=== PATIENT | female | born 2000 | race African-American/Black ===

== ENCOUNTER 2020-03-17 04:50 | Outpatient (CLI) | payer OTHER ==
[2020-03-17 06:43] LABS: APPEARANCE,URINE CLEAR; BILIRUBIN,URINE NEGATIVE (NEGATIVE); COLOR,URINE STRAW; GLUCOSE, URINE NEGATIVE (NEGATIVE); KETONES,URINE NEGATIVE (NEGATIVE); LEUKOCYTE ESTERASE,URINE NEGATIVE (NEGATIVE); NITRITE,URINE NEGATIVE (NEGATIVE); PROTEIN,URINE NEGATIVE (NEGATIVE); URINE SPECIFIC GRAVITY 1.006; UROBILINOGEN,URINE NEGATIVE mg/dL (<2.0)
[2020-03-17 07:00] LABS: URINE AMPHETAMINES SCREEN NEGATIVE; URINE BARBITURATES SCREEN NEGATIVE; URINE BENZODIAZEPINES SCREEN NEGATIVE; URINE COCAINE SCREEN NEGATIVE; URINE MARIJUANA (THC) SCREEN NEGATIVE; URINE METHADONE SCREEN NEGATIVE; URINE PHENCYCLIDINE SCREEN NEGATIVE
--- NOTE | 2020-03-17 07:07 | Non Stress Test Report ---
Non Stress Test Datetime Report Generated by CPN: 03/17/2020 07:07 DEMOGRAPHIC EGA NST: 36.4 INDICATION Indication for Study (NST) Other: lc; gestational age > 32 weeks VITAL SIGNS Temperature - NST: 98.2 Pulse - NST: 91 RESP - NST: 16 NBPSYS NST: 96 NBPDIA NST: 62 MONITORING Monitor Explained: Monitor Explained; Test Explained; Patient Verbalized Understanding Time on Monitor: 03/17/2020 05:18 Time off Monitor: 03/17/2020 06:50 NST Duration: 92 NST INTERVENTIONS NST Interventions: PO Hydration; Reposition Patient Physician Notified NST: dr johnson BABY A: [id number] BABY A Movement : Present Contraction Frequency : x2 FHR Baseline : 125 Accelerations : 15X15 Decelerations : None Variability : Moderate 6-25bpm NST Review: Meets Criteria for Reactive NST NST Review and Verified By : Setphanie Callahan RN Results: Reactive NST REPORT Report Trigger: Send Report
== END 2020-03-17 07:04 | disposition home or self-care (01) ==
LOC: LC 04:50
PROVIDERS: ATTEND Student in an Organized Health Care Education/Training Program
DX: O47.03 False labor before 37 completed weeks of gestation, third trimester (principal); Z3A.36 36 weeks gestation of pregnancy
CPT/HCPCS: 80307; 81001

== ENCOUNTER 2020-03-18 13:59 | Inpatient (IN) | payer OTHER ==
[2020-03-18] MEDS ORDERED: OXYTOCIN 10 UNIT/ML VIAL ONE (14:18)
[2020-03-18] MEDS ORDERED: OXYTOCIN/0.9 % SODIUM CHLORIDE 30 UNIT/500 ML RTUINJ ONE (14:18)
[2020-03-18] MEDS ORDERED: LIDOCAINE 1% INJ-PF (10 MG/ML) 30 ML SDV ONE (14:18)
[2020-03-18] MEDS ORDERED: MISOPROSTOL 0.2 MG TABLET ONE (14:18)
[2020-03-18] MEDS ORDERED: RINGERS SOLUTION,LACTATED 1,000 ML IV PRN (14:19)
[2020-03-18] MEDS ORDERED: PENICILLIN G-K 5 MILLION UNIT VIAL ONE (14:21)
[2020-03-18] MEDS ORDERED: DIPHENHYDRAMINE HCL 25 MG CAPSULE PO PRN (15:03)
[2020-03-18] MEDS ORDERED: GLYCERIN/WITCH HAZEL LEAF 1 EACH MED..WIPE TP PRN (15:03)
[2020-03-18] MEDS ORDERED: ACETAMINOPHEN WITH CODEINE #3 TABLET PO PRN (15:03)
[2020-03-18] MEDS ORDERED: ZOLPIDEM TARTRATE 5 MG TABLET PO PRN (15:03)
[2020-03-18] MEDS ORDERED: ACETAMINOPHEN 650 MG SUPP.RECT PR PRN (15:03)
[2020-03-18] MEDS ORDERED: PSEUDOEPHEDRINE HCL 30 MG TABLET PO PRN (15:03)
[2020-03-18] MEDS ORDERED: NA PHOS,M-B/NA PHOS,DI-BA (ADULT) 133 ML ENEMA PR PRN (15:03)
[2020-03-18] MEDS ORDERED: PROMETHAZINE HCL 25 MG TABLET PO PRN (15:03)
[2020-03-18] MEDS ORDERED: MAGNESIUM HYDROXIDE SUSP 30 ML UDCUP PO PRN (15:03)
[2020-03-18] MEDS ORDERED: MEASLES,MUMPS&RUBELLA VACC/PF 0.5 ML VIAL SUBCUT PRN (15:03)
[2020-03-18] MEDS ORDERED: PROMETHAZINE HCL 25 MG SUPP.RECT PR PRN (15:03)
[2020-03-18] MEDS ORDERED: DIPH/PERTUSS(ACELL)/TETANUS VAC/PF 0.5 ML SYR (>=10YO) IM PRN (15:03)
[2020-03-18] MEDS ORDERED: BENZOCAINE/MENTHOL AEROSOL SPRAY 56 ML TOP PRN (15:03)
[2020-03-18] MEDS ORDERED: OXYTOCIN/0.9 % SODIUM CHLORIDE 30 UNIT/500 ML RTUINJ IV PRN (15:03)
[2020-03-18] MEDS ORDERED: DIBUCAINE 1% OINTMENT 28 GM TP PRN (15:03)
[2020-03-18] MEDS ORDERED: PROMETHAZINE HCL INJ 25 MG/1 ML VIAL IV PRN (15:03)
--- NOTE | 2020-03-18 15:11 | Admission Physical ---
Datetime Report Generated by CPN: 03/18/2020 15:11 CURRENT ADMISSION Chief Complaint: Uterine Contractions Indication for Induction: Not Applicable Admit Impression : Postterm, Intrauterine Admit Plan: Admit to Unit; Initiate Labor Protocol ALLERGIES Medication Allergies: No Medication Allergies: No Known Allergies (03/17/2020) Latex: No Latex Allergies OBSTETRICAL HISTORY EDC: 04/10/2020 00:00 : 2 Para: 0 Term: 0 : 0 SAB: 0 IAB: 1 Ectopic: 0 Livin Cesareans: 0 VBACs: 0 Multiple Births: 0 Gestational Diabetes: No Rh Sensitization: No Incompetent Cervix: No MONIQUE: No Infertility: No ART Treatment: No Uterine Anomaly: No IUGR: No Hx Previous C/S: No Macrosomia: No Hx Loss/Stillborn: No PIH: No Hx : No Placenta Previa/Abruption: No Depression/PP Depression: No PTL/PROM: No Post Hemorrhage: No Current Procedures: Ultrasound Obstetrical History Comments: G1- current SEE RECORDS Alcohol: No Marijuana : No Cocaine: No Other Illicit Drugs: No Cigarettes: Never Smoker. [id number] MEDICAL HISTORY Diabetes: No Blood Transfusion: No Pulmonary Disease (Asthma, TB): No Breast Disease: No Hypertension: No Costume Maker Surgery: No Heart Disease: No Hosp/Surgery: No Autoimmune Disorder: No Anesthetic Complications: No Kidney Disease: No Abnormal Pap Smear: No Neuro/Epilepsy: No Psychiatric Disorders: No Other Medical Diseases: No Hepatitis/Liver Disease: No Significant Family History: No Varicosities/Phlebitis: No Trauma/Violence : No Thyroid Dysfunction: No INFECTIOUS HISTORY Gonorrhea: No Genital Herpes: No Chlamydia: No Tuberculosis: No Syphilis: No Hepatitis: No HIV/AIDS Exposure: No Rash or Viral Illness: No HPV: No PHYSICAL EXAM General: Normal HEENT: Normal Neurologic: Normal Thyroid: Normal Heart: Normal Lungs: Normal Breast: Deferred Back: Normal Abdomen: Normal Genitourinary Exam: Normal Extremities: Normal DTRs: Normal Pelvic Type: Adequate Vital Signs: Reviewed FETUS A EGA: 36.5 Monitoring: External US FHR- Baseline: 120 Variability: Moderate 6-25bpm Decelerations: None Presentation: Vertex Admit Comment: admit for labor PLANS FOR LABOR AND DELIVERY Labor and Delivery: None Pain Management: Epidural Feeding Preference: Breast Benefit of Breast Feed Discussed: Yes Circumcision: N/A INFORMED CONSENT Signature: with User ID: [email or web address]
[2020-03-18] MEDS ORDERED: MISOPROSTOL 0.2 MG TABLET PR ONE (15:13)
[2020-03-18 15:20] LABS: ABSOLUTE BASOPHILS # (AUTO) 0.1 10^3/uL (0.0-0.2); ABSOLUTE MONOCYTES (AUTO) 0.6 10^3/uL (0.1-1.4); ABSOLUTE NEUT (AUTO) 17.5 10^3/uL (1.7-8.2); BASOPHILS % (AUTO) 0.4 % (0-2); HEMATOCRIT 33.8 % (36.0-47.0); HEMOGLOBIN 11.4 g/dL (12.0-15.5); LYMPHOCYTES % (AUTO) 5.3 % (13-45); MEAN CORPUSCULAR HGB CONC 33.7 g/dL (32.0-36.0); MEAN CORPUSCULAR VOLUME 86 fl (80-97); MONOCYTES % (AUTO) 2.9 % (3-13); PLATELET COUNT 401 10^3/uL (150-450); RED BLOOD COUNT 3.93 10^6/uL (3.72-5.28); RED CELL DISTRIBUTION WIDTH 15.4 % (11.5-14.0); SEGMENTED NEUTROPHILS % (AUTO) 91.4 % (42-78); TOTAL CELLS COUNTED % (AUTO) 100 %; WHITE BLOOD COUNT 19.2 10^3/uL (4.0-10.5)
[2020-03-18] MEDS ORDERED: ACETAMINOPHEN WITH CODEINE #3 TABLET ONE (15:42)
[2020-03-18] MEDS ORDERED: IBUPROFEN 800 MG TABLET ONE (15:43)
[2020-03-18] MEDS: ACETAMINOPHEN WITH CODEINE #3 TABLET PO PRN ×2 (15:45→22:35)
[2020-03-18] MEDS ORDERED: BENZOCAINE/MENTHOL AEROSOL SPRAY 56 ML ONE (16:59)
--- NOTE | 2020-03-18 17:40 | Delivery Summary ---
Del Sum A-C Datetime Report Generated by CPN: 03/18/2020 17:40 DELIVERY PERSONNEL DELIVERY PERSONNEL: [id number] Delivery Doctor:: Etienne Gillespie MD Labor and Delivery Nurse:: Daniela Dockery RNgolf club facer Nurse:: Jose Francisco Garvey RN Nursery Nurse:: Mayi Mendez RN Nursery Nurse:: Carissa Mayer RN Commercial Leasing Manager/MOVIE SHOT CAMERAMAN: Balbina Oneal, ST Commercial Leasing Manager/MOVIE SHOT CAMERAMAN: Crista Pitshunter, SCALPING MACHINE OPERATOR MATERNAL INFORMATION Delivery Anesthesia: None Medications After Delivery: Pitocin 30 Units in 500ml NS/D5W Delivery QBL: 200 Maternal Complications: Precipitous Labor (<3hrs) LABOR SUMMARY EDC: 04/01/2020 00:00 No. Babies in Womb: 1 Attempted: No Labor Anesthesia: None LABOR INFORMATION Reason for Induction: Not Applicable Onset of Labor: 03/17/2020 05:00 Complete Dilatation: 03/18/2020 14:18 Oxytocin: N/A Group B Beta Strep: 03/14/20 negative (pt had +GBS in urine in early preg) Antibiotics # of Doses: 1 Antibiotics Time of Last Dose: 03/18/2020 14:26 Name of Antibiotic Given: pcn Steroids Given: None Reason Steroids Not Administered: Not Applicable MEMBRANES Membranes Rupture Method: Spontaneous Rupture of Membranes: 03/18/2020 14:28 Length of Rupture (hr): 0.40 Amniotic Fluid Color: Moderate Meconium Amniotic Fluid Amount: Small Amniotic Fluid Odor: Normal STAGES OF LABOR Stage 1 hr: 33 Stage 1 min: 18 Stage 2 hr: 0 Stage 2 min: 34 Stage 3 hr: 0 Stage 3 min: 4 Total Time in Labor hr: 33 Total Time in Labor min: 56 VAGINAL DELIVERY Episiotomy: None Laceration #1: None Laceration Extension #1: N/A Laceration Repair: Not Applicable Sponge Count Correct: Yes Sharps Count Correct: Yes CSECTION DELIVERY Primary Indication: N/A Secondary Indication: N/A CSection Incidence: N/A Labor: N/A Elective: N/A CSection Incision: N/A BABY A INFORMATION Delivery Date/Time: 03/18/2020 14:52 Method of Delivery: Vaginal Nurse Controlled Delivery: No Born in Route : No : N/A Forceps: N/A Vacuum Extraction: N/A Shoulder Dystocia : No PRESENTATION/POSITION BABY A Presentation: Cephalic Cephalic Presentation: Vertex Vertex Position: Left Occipital Anterior Breech Presentation: N/A PLACENTA INFORMATION BABY A Placenta Delivery Time : 03/18/2020 14:56 Placenta Method of Delivery: Spontaneous Placenta Status: Delivered SCORES BABY A Heart Rate 1 min: >100 bpm Resp Effort 1 min: Good Cry Reflex Irritability 1 min: Cough or Sneeze or Pulls Away Muscle Tone 1 min: Active Motion Color 1 min: Body [place], Extremities Blue Resuscitation Effort 1 min: Tactile Stimulation SCORE 1 MIN: 9 Heart Rate 5 min: >100 bpm Resp Effort 5 min: Good Cry Reflex Irritability 5 min: Cough or Sneeze or Pulls Away Muscle Tone 5 min: Active Motion Color 5 min: Body [place], Extremities Blue Resuscitation Effort 5 min: N/A SCORE 5 MIN: 9 INFORMATION BABY A Gestational Age at Delivery: 36.5 Gestational Status: Late - 34- 36.6 Weeks Outcome : Liveborn Condition : Stable Sex: Female IDENTIFICATION BABY A Infant Verification Date/Time: 03/18/2020 15:21 ID Band Number: [id number] Mother's Name Verified: Yes RN Verifying : Stephanie Ferreira RN Additional Verifying Personnel: Davey Samuel RN WEIGHT/LENGTH BABY A Birthweight (gm): 2413 Infant Weight (lb): 5 Infant Weight (oz): 5 Infant Length (in): 18.75 Infant Length (cm): 47.63 CORD INFORMATION BABY A No. Cord Vessels: 3 Nuchal Cord : N/A Cord Blood Taken: Yes-For Storage (Mom's Blood type +) Infant Suction: None ASSESSMENT BABY A Infant Complications: Meconium Physical Findings at Delivery: Within Normal Limits Infant Respirations: Appears Normal Skin to Skin: Yes Product Development Manager/ALS Called : No Infant Care By: Lauren Mendez, RN Transferred To: Remains with Mother BABY B INFORMATION : N/A SIGNATURES Signature: with User ID: [email or web address]
--- NOTE | 2020-03-18 17:40 | Birth Certificate Data ---
Cert Data Datetime Report Generated by SHARONA: 03/18/2020 17:40 CERTIFICATE DATA 47a. Care: Yes (03/17/2020 04:53:Maira Lopez RN) 47b. Date of First Visit: 08/04/2019 00:00 (03/17/2020 04:53:Daniela Dockery RN) 47c. Date of Last Visit: 03/14/2020 00:00 (03/17/2020 04:53:Daniela Dockery RN) 47d. Number of Visits: 9 (03/17/2020 04:53:Daniela Dockery RN) 48a. Number of Prev Live Births: 0 (03/17/2020 04:53:Maira Lopez RN) 48b. Now Livin (03/17/2020 04:53:Maira Lopez RN) 48c. Live Births Now : 0 (03/17/2020 04:53:QS system process) 48e. Losses: 1 (03/17/2020 04:53:Maira Lopez RN) 48f. Date of Last Preg Loss: 06/02/2018 00:00 (Annotations: Data stored by [facility] on behalf of user) (03/17/2020 04:53:Maira Lopez RN) RISK FACTORS IN THIS 49a. Diabetes: No (03/17/2020 04:53:Maira Lopez RN) 49b. Hypertension: No (03/17/2020 04:53:Maira Lopez RN) 49c. Previous Births: 0 (03/17/2020 04:53:Daniela Dockery RN) 49d. Stillborns: No (03/17/2020 04:53:Maira oLpez RN) 49d. IUGR: No (03/17/2020 04:53:Maira Lopez RN) 49e. Infertility Treatment: No (03/17/2020 04:53:Maira Lopez RN) 49f. Previous Cesareans: 0 (03/17/2020 04:53:Maira Lopez RN) Mother's Height 50b. Height Inches: 64 (03/18/2020 16:36:QS system process) Mother's Weight 51a. Pre- Weight (lbs): 138 (03/17/2020 04:53:Daniela Dockery RN) 51b. Weight at Delivery (lbs): 174 (03/18/2020 16:36:QS system process) 52. Dt Last Normal Menses Began: 06/26/2019 00:00 (03/17/2020 04:53:Maira Lopez RN) Infections Present/Treated 53a. Gonorrhea: No (03/17/2020 04:53:Maira Lopez RN) Results this Hospital Visit : Negative (03/17/2020 04:53:Yesy Callahan RN) 53b. Syphilis: No (03/17/2020 04:53:Maira Lopez RN) 53c. Chlamydia: No (03/17/2020 04:53:Maira Lopez RN) Results this Hospital Visit: Negative (03/17/2020 04:53:Yesy Callahan RN) 53d. Hepatitis B: No (03/17/2020 04:53:Maira Lopez RN) Results this Hospital Visit: Negative (03/17/2020 04:53:Maira Lopez RN) 53e. Hepatitis C: Negative (03/17/2020 04:53:Daniela Dockery RN) 53h. Mother Tested for HBsAG: Yes (03/17/2020 04:53:Maira Lopez RN) 53i. Date Tested: 03/07/2020 00:00 (03/17/2020 04:53:Maira Lopez RN) 53j. Test Result: Negative (03/17/2020 04:53:Maira Lopez RN) Obstetric Procedures 54a, b, c. Obstetric Procedures: Ultrasound (03/17/2020 04:53:Maira Lopez RN) Onset of Labor 56a. PROM >12 Hrs: 0.40 (03/17/2020 04:53:QS system process) 56b. Precipitous Labor <3 Hrs: 33 (03/17/2020 04:53:QS system process) 56c. Prolonged Labor > 20 Hrs: 33 (03/17/2020 04:53:QS system process) 57a. Induction of Labor: N/A (03/17/2020 04:53:Vdia Baker RN) 57c. Non-Vertex Presentation A: Vertex (03/17/2020 04:53:Vida Baker RN) 57d. Steroids - Lung Mat: None (03/17/2020 04:53:Vida Baker RN) 57d. Steroids - Lung Mat: Not Applicable (03/17/2020 04:53:Vida Baker RN) 57e. Antibiotics During Labor: 03/18/2020 14:26 (03/17/2020 04:53:Vida Baekr RN) 57g. Moderate/Heavy Meconium: Moderate Meconium (03/18/2020 14:28:Daniela Dockery RN) 57h. Intolerance of Labor: N/A (03/17/2020 04:53:Vida Baker RN) : N/A (03/17/2020 04:53:Vida Baker RN) 57i. Epidural/Spinal Anesthesia: None (03/17/2020 04:53:Vida Baker RN) Method of Delivery 58a. Forceps - Unsuccessful A: N/A (03/17/2020 04:53:Vida Baker RN) 58b. Vacuum - Unsuccessful A: N/A (03/17/2020 04:53:Vida Baker RN) 58c. Presentation at 58c. Presentation at - A : Vertex (03/17/2020 04:53:Vida Baker RN) 58c. Presentation at - A : N/A (03/17/2020 04:53:Vida Baker RN) 58c. Presentation at - A : Cephalic (03/17/2020 04:53:Vida Baker RN) Final Route and Method of Del 58d. Baby A Route/Delivery: Vaginal (03/18/2020 14:52:Vida Baker RN) 58e. Trial of Labor Attempted: No (03/17/2020 04:53:Vida Baker RN) 58e. Trial of Labor Attempted A: N/A (03/17/2020 04:53:Vida Baker RN) 58e. Trial of Labor Attempted B: N/A (03/17/2020 04:53:Vida Baker RN) Maternal Morbidity 59b. 3rd or 4th Degree Lacs: None (03/17/2020 04:53:Vida Baker RN) 59b. 3rd or 4th Degree Lacs: N/A (03/17/2020 04:53:Daniela Dockery RN) Birthweight Baby A: 2413 (03/17/2020 04:53:Daniela Dockery RN) 60a. Pounds : 5 (03/17/2020 04:53:QS system process) 60b. Ounces: 5 (03/17/2020 04:53:QS system process) 61. GA at Delivery Baby A: 36.5 (03/17/2020 04:53:Vida Baker RN) : Late - 34- 36.6 Weeks (03/17/2020 04:53:QS system process) 62a. 5 Minute Baby A: 9 (03/17/2020 04:53:QS system process)
[2020-03-18 18:05] LABS: APPEARANCE,URINE SLIGHTLY-CLOUDY; BILIRUBIN,URINE NEGATIVE (NEGATIVE); GLUCOSE, URINE NEGATIVE (NEGATIVE); KETONES,URINE TRACE mg/dL (NEGATIVE); LEUKOCYTE ESTERASE,URINE NEGATIVE (NEGATIVE); NITRITE,URINE NEGATIVE (NEGATIVE); PROTEIN,URINE >=500 mg/dL (NEGATIVE); URINE SPECIFIC GRAVITY 1.023; UROBILINOGEN,URINE NEGATIVE mg/dL (<2.0)
[2020-03-18 18:06] LABS: COLOR,URINE YELLOW
[2020-03-18 18:19] LABS: URINE AMPHETAMINES SCREEN NEGATIVE; URINE BARBITURATES SCREEN NEGATIVE; URINE BENZODIAZEPINES SCREEN NEGATIVE; URINE COCAINE SCREEN NEGATIVE; URINE MARIJUANA (THC) SCREEN NEGATIVE; URINE METHADONE SCREEN NEGATIVE; URINE PHENCYCLIDINE SCREEN NEGATIVE
[2020-03-18] MEDS: DOCUSATE SODIUM 100 MG CAPSULE PO SCH (18:30)
[2020-03-18] MEDS: FERROUS SULFATE 325 MG TABLET PO SCH (18:30)
[2020-03-18] MEDS: FAMOTIDINE 20 MG TABLET PO SCH (21:26)
[2020-03-18] MEDS: IBUPROFEN 800 MG TABLET PO SCH (21:27)
[2020-03-19] MEDS: IBUPROFEN 800 MG TABLET PO SCH ×3 (05:07→22:18)
[2020-03-19 07:29] LABS: HEMATOCRIT 31.7 % (36.0-47.0); HEMOGLOBIN 10.7 g/dL (12.0-15.5); MEAN CORPUSCULAR HEMOGLOBIN 28.9 pg (27.0-33.4); MEAN CORPUSCULAR HGB CONC 33.6 g/dL (32.0-36.0); MEAN CORPUSCULAR VOLUME 86 fl (80-97); PLATELET COUNT 373 10^3/uL (150-450); RED BLOOD COUNT 3.69 10^6/uL (3.72-5.28); RED CELL DISTRIBUTION WIDTH 15.5 % (11.5-14.0); WHITE BLOOD COUNT 13.7 10^3/uL (4.0-10.5)
[2020-03-19] MEDS: PRENATAL VITAMIN W DHA CAPSULE PO SCH (09:41)
[2020-03-19] MEDS: FERROUS SULFATE 325 MG TABLET PO SCH ×2 (09:41→17:44)
[2020-03-19] MEDS: FAMOTIDINE 20 MG TABLET PO SCH ×2 (09:41→22:18)
[2020-03-19] MEDS: SENNOSIDES/DOCUSATE 8.6-50 MG 1 EACH TABLET PO SCH (09:41)
[2020-03-19] MEDS: DOCUSATE SODIUM 100 MG CAPSULE PO SCH ×2 (09:41→17:44)
--- NOTE | 2020-03-19 09:41 | PDOC PROGRESS REPORT ---
Subjective-OB Progress Note for:: 03/19/20 Subjective: Doing well, no c/o, , voiding, eating well, scant lochia Physical Exam (OB) Vital Signs: Temp Pulse Resp BP Pulse Ox 98.0 F 86 20 110/86 H 97 03/19/20 07:19 03/19/20 07:19 03/19/20 07:19 03/19/20 07:19 03/19/20 07:19 Intake & Output 03/18/20 03/19/20 03/20/20 06:59 06:59 06:59 Intake Total 400 Balance 400 Weight 79.4 kg - PIH/Pre-Eclampsia Clonus: Negative Headache: Absent Epigastric Pain: No Visual Changes: No - Maternal Morbidity 59. Maternal Morbidity (serious complications experinced by the mother associated with labor and delivery: None of the above - Lochia Lochia Amount: Scant < 10 ml Lochia Color: Rubra/Red - Abdomen Description: Soft Hernia Present: No Fundal Description: Firm, Midline Fundal Height: u/u - u/2 Objective-Diagnostic Laboratory: 03/19/20 06:58 03/18/20 03/18/20 03/18/20 15:00 15:00 16:55 WBC 19.2 H RBC 3.93 Hgb 11.4 L Hct 33.8 L MCV 86 MCH 29.0 MCHC 33.7 RDW 15.4 H Plt Count 401 Seg Neutrophils % 91.4 H Urine Color YELLOW Urine Appearance SLIGHTLY-CLOUDY Urine pH 6.0 Ur Specific [place] 1.023 Urine Protein >=500 H Urine Glucose (UA) NEGATIVE Urine Ketones TRACE H Urine Blood SMALL H Urine Nitrite NEGATIVE Ur Leukocyte Esterase NEGATIVE Urine RBC (Auto) >182 Blood Type A POSITIVE Antibody Screen NEGATIVE 03/19/20 06:58 WBC 13.7 H RBC 3.69 L Hgb 10.7 L Hct 31.7 L MCV 86 MCH 28.9 MCHC 33.6 RDW 15.5 H Plt Count 373 Seg Neutrophils % Urine Color Urine Appearance Urine pH Ur Specific [place] Urine Protein Urine Glucose (UA) Urine Ketones Urine Blood Urine Nitrite Ur Leukocyte Esterase Urine RBC (Auto) Blood Type Antibody Screen Assessment and Plan(PN) - Assessment and Plan (1) GBS (group B Streptococcus carrier), +RV culture, currently Is this a current diagnosis for this admission?: Yes (2) Delivery normal Is this a current diagnosis for this admission?: Yes - Time Spent with Patient Time with patient: Less than 15 minutes Medications reviewed and adjusted accordingly: Yes - Disposition Anticipated Discharge Disposition: Home, Self Care Anticipated Discharge Timeframe: within 24 hours
[2020-03-20] MEDS: IBUPROFEN 800 MG TABLET PO SCH (06:04)
[2020-03-20 08:06] VITALS: BP 122/78
--- NOTE | 2020-03-20 09:24 | PDOC DISCHARGE SUMMARY ---
Impression - Admit/DC Date/PCP Admission Date/Primary Care Provider: 03/18/20 14:33 JOSH MOTA MD Discharge Date: 03/20/20 - PP Day #2, doing well, A+, Rubella Immune, , - Discharge Diagnosis (1) Normal course Is this a current diagnosis for this admission?: Yes (2) Delivery normal Is this a current diagnosis for this admission?: Yes (3) GBS (group B Streptococcus carrier), +RV culture, currently Is this a current diagnosis for this admission?: Yes - Additional Information Resuscitation Status: Full Code Discharge Diet: As Tolerated, Regular Discharge Activity: Activity As Tolerated, No Lifting Over 10 Pounds, Pelvic Rest Referrals: JOSH MOTA MD [Primary Care Provider] - Prescriptions: Ibuprofen [Motrin 800 mg Tablet] 800 mg PO Q8 #60 tablet Home Medications: Pnv No.95/Ferrous Fum/Folic AC [ Caplet] 1 tab PO DAILY 03/17/20 Ibuprofen [Motrin 800 mg Tablet] 800 mg PO Q8 #60 tablet 03/20/20 HPI Reason(s) for Admission: Onset of Labor Procedures: Ultrasound Intrapartum Procedure(s): Spontaneous Vaginal Delivery Hospital Course 59. Maternal Morbidity (serious complications experinced by the mother associated with labor and delivery: None of the above Results Laboratory Results: WBC 13.7 10^3/uL (4.0-10.5) H 03/19/20 06:58 RBC 3.69 10^6/uL (3.72-5.28) L 03/19/20 06:58 Hgb 10.7 g/dL (12.0-15.5) L 03/19/20 06:58 Hct 31.7 % (36.0-47.0) L 03/19/20 06:58 MCV 86 fl (80-97) 03/19/20 06:58 MCH 28.9 pg (27.0-33.4) 03/19/20 06:58 MCHC 33.6 g/dL (32.0-36.0) 03/19/20 06:58 RDW 15.5 % (11.5-14.0) H 03/19/20 06:58 Plt Count 373 10^3/uL (150-450) 03/19/20 06:58 Lymph % (Auto) 5.3 % (13-45) L 03/18/20 15:00 [place] % (Auto) 2.9 % (3-13) L 03/18/20 15:00 Eos % (Auto) 0.0 % (0-6) 03/18/20 15:00 Baso % (Auto) 0.4 % (0-2) 03/18/20 15:00 Absolute Neuts (auto) 17.5 10^3/uL (1.7-8.2) H 03/18/20 15:00 Absolute Lymphs (auto) 1.0 10^3/uL (0.5-4.7) 03/18/20 15:00 Absolute Monos (auto) 0.6 10^3/uL (0.1-1.4) 03/18/20 15:00 Absolute Eos (auto) 0.0 10^3/uL (0.0-0.6) 03/18/20 15:00 Absolute Basos (auto) 0.1 10^3/uL (0.0-0.2) 03/18/20 15:00 Seg Neutrophils % 91.4 % (42-78) H 03/18/20 15:00 Urine Color YELLOW 03/18/20 16:55 Urine Appearance SLIGHTLY-CLOUDY 03/18/20 16:55 Urine pH 6.0 (5.0-9.0) 03/18/20 16:55 Ur Specific [place] 1.023 03/18/20 16:55 Urine Protein >=500 mg/dL (NEGATIVE) H 03/18/20 16:55 Urine Glucose (UA) NEGATIVE mg/dL (NEGATIVE) 03/18/20 16:55 Urine Ketones TRACE mg/dL (NEGATIVE) H 03/18/20 16:55 Urine Blood SMALL (NEGATIVE) H 03/18/20 16:55 Urine Nitrite NEGATIVE (NEGATIVE) 03/18/20 16:55 Urine Bilirubin NEGATIVE (NEGATIVE) 03/18/20 16:55 Urine Urobilinogen NEGATIVE mg/dL (<2.0) 03/18/20 16:55 Ur Leukocyte Esterase NEGATIVE (NEGATIVE) 03/18/20 16:55 Urine RBC (Auto) >182 /HPF 03/18/20 16:55 Urine Ascorbic Acid NEGATIVE (NEGATIVE) 03/18/20 16:55 Urine Opiates Screen UNCONFIRMED POSITIVE 03/18/20 16:55 Urine Methadone Screen NEGATIVE 03/18/20 16:55 Ur Barbiturates Screen NEGATIVE 03/18/20 16:55 Ur Phencyclidine Scrn NEGATIVE 03/18/20 16:55 Ur Amphetamines Screen NEGATIVE 03/18/20 16:55 U Benzodiazepines Scrn NEGATIVE 03/18/20 16:55 Urine Cocaine Screen NEGATIVE 03/18/20 16:55 U Marijuana (THC) Screen NEGATIVE 03/18/20 16:55 RPR NONREACTIVE (NONREACTIVE) 03/18/20 15:00 Blood Type A POSITIVE 03/18/20 15:00 Antibody Screen NEGATIVE 03/18/20 15:00 Plan Plan of Treatment: d/c home, F/.up with [facility] in 4 weeks for PP check Time Spent: Less than 30 Minutes
[2020-03-20] MEDS: SENNOSIDES/DOCUSATE 8.6-50 MG 1 EACH TABLET PO SCH (09:55)
[2020-03-20] MEDS: DOCUSATE SODIUM 100 MG CAPSULE PO SCH (09:55)
[2020-03-20] MEDS: PRENATAL VITAMIN W DHA CAPSULE PO SCH (09:55)
[2020-03-20] MEDS: FERROUS SULFATE 325 MG TABLET PO SCH (09:55)
[2020-03-20] MEDS: FAMOTIDINE 20 MG TABLET PO SCH (09:56)
== END 2020-03-20 12:27 | disposition home or self-care (01) | DRG 807 ==
LOC: LC 13:59 → LR 14:33 → 2S 18:00
PROVIDERS: ADMIT Obstetrics & Gynecology; ATTEND Obstetrics & Gynecology
PROC: 10E0XZZ Delivery of Products of Conception, External Approach (ICD-10-PCS; principal; 2020-03-18)
DX: O60.14X0 Preterm labor third trimester with preterm delivery third trimester, not applicable or unspecified (principal); Z37.0 Single live birth; O62.3 Precipitate labor; O77.0 Labor and delivery complicated by meconium in amniotic fluid; O99.824 Streptococcus B carrier state complicating childbirth; Z3A.36 36 weeks gestation of pregnancy
CPT/HCPCS: 36415; 59025; 80307; 81001; 85025; 85027; 86592; 86850; 86900; 86901; J2540; J2590; J3490